=== PATIENT | female | born 1990 | race Caucasian/White ===

== ENCOUNTER → 2019-10-14 14:02 | Outpatient (BNVA) | payer SELFPAY | PROVIDERS: Visit Provider Nurse Practitioner Women's Health | DX: Z34.90 Encounter for supervision of normal pregnancy, unspecified, unspecified trimester (principal) | CPT/HCPCS: 81000 ==

== ENCOUNTER → 2019-11-03 14:04 | Outpatient (BNVA) | payer MEDICAID, SELFPAY | PROVIDERS: Visit Provider Obstetrics & Gynecology | DX: O21.9 Vomiting of pregnancy, unspecified (principal) | CPT/HCPCS: 80053; 80307; 81000; 85027; 86592; 86762; 86803; 86850; 86900; 87340; 87806 ==

== ENCOUNTER → 2019-11-14 13:44 | Outpatient (BNVA) | payer MEDICAID, SELFPAY | PROVIDERS: Visit Provider Nurse Practitioner Women's Health | DX: Z34.81 Encounter for supervision of other normal pregnancy, first trimester (principal) | CPT/HCPCS: 81000; 87491; 87591; 87661; 88175 ==

== ENCOUNTER → 2019-12-09 16:54 | Outpatient (BNVA) | payer MEDICAID, SELFPAY | PROVIDERS: Visit Provider Nurse Practitioner Women's Health | DX: Z34.90 Encounter for supervision of normal pregnancy, unspecified, unspecified trimester (principal) | CPT/HCPCS: 81000 ==

== ENCOUNTER → 2020-01-08 10:51 | Outpatient (BNVA) | payer MEDICAID, SELFPAY | PROVIDERS: Visit Provider Obstetrics & Gynecology | DX: Z34.90 Encounter for supervision of normal pregnancy, unspecified, unspecified trimester (principal) | CPT/HCPCS: 76805 ==

== ENCOUNTER → 2020-01-12 10:26 | Outpatient (BNVA) | payer MEDICAID, SELFPAY | PROVIDERS: Visit Provider Obstetrics & Gynecology | DX: Z34.90 Encounter for supervision of normal pregnancy, unspecified, unspecified trimester (principal) | CPT/HCPCS: 81000 ==

== ENCOUNTER → 2020-02-05 10:58 | Outpatient (BNVA) | payer MEDICAID, SELFPAY | PROVIDERS: Visit Provider Obstetrics & Gynecology | DX: Z34.90 Encounter for supervision of normal pregnancy, unspecified, unspecified trimester (principal) | CPT/HCPCS: 81000 ==

== ENCOUNTER → 2020-03-04 14:04 | Outpatient (BNVA) | payer MEDICAID, SELFPAY | PROVIDERS: Visit Provider Obstetrics & Gynecology | DX: Z34.82 Encounter for supervision of other normal pregnancy, second trimester (principal) | CPT/HCPCS: 81000; 82950; 85027 ==

== ENCOUNTER → 2020-03-08 00:01 | Outpatient (BNVA) | payer MEDICAID, SELFPAY | PROVIDERS: Visit Provider Obstetrics & Gynecology | DX: Z34.82 Encounter for supervision of other normal pregnancy, second trimester (principal) | CPT/HCPCS: 82950 ==

== ENCOUNTER → 2020-03-15 12:40 | Outpatient (BNVA) | payer MEDICAID, SELFPAY | PROVIDERS: Visit Provider Obstetrics & Gynecology | DX: Z34.82 Encounter for supervision of other normal pregnancy, second trimester (principal) | CPT/HCPCS: 81000 ==

== ENCOUNTER → 2020-04-01 13:08 | Outpatient (BNVA) | payer MEDICAID, SELFPAY | PROVIDERS: Visit Provider Obstetrics & Gynecology | DX: Z34.90 Encounter for supervision of normal pregnancy, unspecified, unspecified trimester (principal) | CPT/HCPCS: 81000 ==

== ENCOUNTER → 2020-04-15 11:36 | Outpatient (BNVA) | payer MEDICAID, SELFPAY | PROVIDERS: Visit Provider Nurse Practitioner Women's Health | DX: Z34.83 Encounter for supervision of other normal pregnancy, third trimester (principal) | CPT/HCPCS: 81000 ==

== ENCOUNTER → 2020-04-29 11:10 | Outpatient (BNVA) | payer MEDICAID, SELFPAY | PROVIDERS: Visit Provider Obstetrics & Gynecology | DX: Z34.83 Encounter for supervision of other normal pregnancy, third trimester (principal) | CPT/HCPCS: 81000; 87081 ==

== ENCOUNTER → 2020-05-06 11:08 | Outpatient (BNVA) | payer MEDICAID, SELFPAY | PROVIDERS: Visit Provider Obstetrics & Gynecology | DX: Z34.83 Encounter for supervision of other normal pregnancy, third trimester (principal) | CPT/HCPCS: 81000 ==

== ENCOUNTER → 2020-05-14 11:43 | Outpatient (BNVA) | payer MEDICAID, SELFPAY | PROVIDERS: Visit Provider Obstetrics & Gynecology | DX: O99.820 Streptococcus B carrier state complicating pregnancy (principal) | CPT/HCPCS: 81000 ==

== ENCOUNTER → 2020-05-20 12:53 | Outpatient (BNVA) | payer MEDICAID, SELFPAY | PROVIDERS: Visit Provider Obstetrics & Gynecology | DX: Z34.90 Encounter for supervision of normal pregnancy, unspecified, unspecified trimester (principal); Z20.822 Contact with and (suspected) exposure to COVID-19 | CPT/HCPCS: 81000; 87635 ==

== ENCOUNTER 2020-05-25 23:09 | Inpatient (IN) | payer MEDICAID, SELFPAY ==
[2020-05-25 22:05] VITALS: TEMP 36.4
[2020-05-25 22:11] VITALS: BP 141/97; PULSE 122
[2020-05-25] MEDS: dextrose 5%-lactated ringers 1,000 ML 125 ML IV (23:24)
[2020-05-25] MEDS: ampicillin 2,000 MG in sodium chloride 0.9% (plus) 50 ML 100 MG IV (23:24)
[2020-05-25 23:26] LABS: Basophils # 0.1 10^3/uL (0.0-0.1); Basophils % 0.6 %; Eosinophils # 0.2 10^3/uL (0.0-0.8); Hematocrit 37.1 % (37.0-47.0); Hemoglobin 11.5 g/dL (11.5-15.3); Lymphocytes # 2.1 10^3/uL (0.8-4.8); Lymphocytes % 19.4 %; Mean Corpuscular Hemoglobin 25.3 pg (28.0-34.0); Mean Corpuscular Volume 81.7 fL (81-99); Monocytes # 1.1 10^3/uL (0.2-0.9); Monocytes % 10.6 %; Neutrophils % 66.9 %; Nucleated Red Blood Cells % 0 %; Platelet Count 381 10^3/cmm (130-400); Red Blood Count 4.54 10^6/uL (4.1-5.3); White Blood Count 10.7 10^3/uL (4.0-10.0)
[2020-05-26] VITALS (19 sets, daily range): BP systolic 102–147; BP diastolic 62–91; PULSE 65–139; RESP 17–20; TEMP 36.4–36.9
[2020-05-26] MEDS: ampicillin 1,000 MG in sodium chloride 0.9% (plus) 50 ML 100 MG IV ×2 (03:26→07:00)
[2020-05-26] MEDS: fentaNYL 50 mcg/mL INJ 2mL 25 MCG IVP (07:44)
--- NOTE | 2020-05-26 08:14 | PC.NURSE ---
right lateral with left leg in stir up
[2020-05-26] MEDS: oxytocin 30 UNIT/500 ML BAG 600 UNIT IV (10:24)
--- NOTE | 2020-05-26 10:32 | P.PCNOB_ITS ---
Delivery Note: Date of delivery: May 26, 2020 Pre-delivery diagnoses: 1. Term at 40-1/7 weeks gestation 2. Group B strep positive carrier status affecting in third trimester Post-delivery diagnoses: 1. Term delivered 2. Group B strep positive carrier status - delivered 3. Viable female infant Procedure: Spontaneous vaginal delivery Op report anesthesia: None Delivering Physician: Genaro Todd MD Estimated blood loss (mL): 200 Pre-Delivery Course: Patient is a 29-year-old female 5, para 4-0-0-4 with an LMP of 08/19/2019 and an EDC of 05/25/2020 based on LMP and consistent with a 13-week ultrasound, which placed her at 40-0/7 weeks gestation at the time of admission. She presented to labor and delivery on 05/25/2020 at approximately 21:50 with complaint of contractions. She was cynthia regularly at that time. She was 70% effaced and 3 cm dilated. She continued to contract regularly and by approximately 23:00 she was 4 cm dilated. She was admitted to the hospital. She was started on ampicillin for group B strep prophylaxis due to positive carrier status. She continued to progress on her own through the rest of the night. At 08:53, artificial rupture membranes was performed with clear fluid present. She was 8 cm dilated at the time. She progressed to complete dilation by 10:12. heart rate tracing was reassuring during the labor course. Delivery: Patient started pushing at 10:15 and delivered at 10:19 as a spontaneous vaginal delivery of an occiput anterior female infant over an intact perineum under no anesthesia. Following delivery of the 's head, 3 loops of nuchal cord were noted and reduced. Rest of the infant delivered atraumatically with the left shoulder anterior. Infant was placed on the mother's abdomen where it was left in the care of the waiting nurses. At approximately 2 minutes of life, cord was clamped and then cut. Baby was spontaneously crying. Pitocin bolus was started. Placenta delivered intact by simple expression at 10:23. Cervix and vagina were palpated and noted to be intact. The labia were inspected and noted to be intact except for scattered superficial abrasions which required no repair. FINDINGS 1. Viable female infant with a weight of 6 lbs 7 oz (3039 g) and length of 20 inches with Apgars of 8 at 1 minute and 9 at 5 minutes. 2. Three-vessel cord with 3 loops of nuchal cord noted. 3. Normal-appearing placenta with an eccentric cord insertion. Post-Delivery Status: Mother and infant were left to recover in satisfactory condition. A&P Assessment and plan (1) Term delivered: Status: Acute (2) Group B Streptococcus carrier, delivered, current hospitalization: Status: Acute Coding Level of Care Code Acute Security System Sales Consultant for Chg Fwd Diagnoses Term delivered O80 Group B Streptococcus carrier, delivered, current hospitalization O99.824
[2020-05-26] MEDS: ibuprofen 800 mg tablet PO ×2 (16:29→20:44)
[2020-05-26] MEDS: benzocaine-menthol 78 gm Canister 1 SPRAY TOPICAL (16:29)
[2020-05-26] MEDS: lanolin oint 7 gm 1 APPLIC TOPICAL (16:29)
[2020-05-26] MEDS: docusate sodium 100 mg Capsule PO (20:44)
[2020-05-26 23:29] LABS: Hematocrit 30.7 % (37.0-47.0); Hemoglobin 9.4 g/dL (11.5-15.3); Mean Corpuscular HGB Conc 30.6 g/dL (30.0-36.0); Mean Corpuscular Hemoglobin 25.1 pg (28.0-34.0); Mean Corpuscular Volume 81.9 fL (81-99); Mean Platelet Volume 9.9 fL (7.4-10.4); Platelet Count 319 10^3/cmm (130-400); Red Blood Count 3.75 10^6/uL (4.1-5.3); Red Cell Distribution Width 15.1 % (12.1-15.1); White Blood Count 10.4 10^3/uL (4.0-10.0)
[2020-05-27 00:17] VITALS: BP 104/58; PULSE 74
[2020-05-27 04:05] VITALS: BP 94/56; PULSE 73
--- NOTE | 2020-05-27 07:59 | PM.OBGYDC ---
Discharge Providers NARCOTICS DETECTIVE Date of Admission: 05/25/20 23:09 Date of Discharge: 05/27/20 Attending Provider at Admission: Genaro Todd MD Attending Provider at Discharge: Genaro Todd MD Diagnoses at Discharge Discharge Diagnosis (1) Term delivered: Status: Acute (2) Group B Streptococcus carrier, delivered, current hospitalization: Status: Acute Reason for Visit Reason for Visit: contractions Hospital Course Hospital Course Patient is a 29-year-old female 5, now para 5-0-0-5 with an LMP of 08/19/2019 and an EDC of 05/25/2020 based on LMP and consistent with a 13-week ultrasound. She was 40-0/7 weeks gestation at the time of admission. She presented to L&D on 05/25/2020 at approximately 21:50 with contractions. She was started on ampicillin for positive group B strep status. She progressed on her own through the night and by 10:12 on 05/26/2020, was found to be completely dilated. She started pushing at 10:15 and delivered at 10:19 as a spontaneous vaginal delivery of an occiput anterior female infant over an intact perineum under no anesthesia. The baby weighed 6 pounds 7 ounces (3039 g) with a length of 20 inches and Apgars of 8 at 1 minute 9 at 5 minutes. Mother and both did well following delivery. Day 1 She was without complaints. She reported tolerating regular diet without nausea or vomiting. She was ambulating without lightheadedness or dizziness. She stated her pain was well controlled. She denied shortness of breath or chest pains. She denied problems with urination. She stating her bleeding has slowed. She is wanting to go home today. Physical exam: See below Plan Discharge to home. Discharge instructions discussed with patient. She is to follow-up in the office in approximately 6 weeks for visit. Information Peripartum Data: Infant Delivery Method: Vaginal Physical Exam Const: COMMON NORMALS: no acute distress, average body habitus, alert and well nourished GENERAL APPEARANCE: well developed ORIENTATION/CONSCIOUSNESS: Yes oriented to person, Yes oriented to place and Yes oriented to time Resp: COMMON NORMALS: normal respiratory effort and clear to auscultation bilaterally AUSCULTATION: clear to auscultation bilaterally Cardio: COMMON NORMALS: regular rate, regular rhythm, No gallops present (Cardio) and No rub (Cardio) RATE: regular rate RHYTHM: regular rhythm GI: COMMON NORMALS: Soft to palpation, non-tender, No hepatosplenomegaly present and no masses (Except for nontender uterus) AUSCULTATION: Yes normoactive bowel sounds PALPATION: Yes Soft to palpation, Yes No hepatosplenomegaly present and No Hernia present : EXTERNAL FEMALE EXAM: No Hernia present Extremity: COMMON NORMALS: no calf tenderness NARRATIVE EXTREMITY EXAM: Trace lower extremity edema bilaterally Neuro: SENSORIUM/ORIENTATION: Yes alert, Yes oriented to person, Yes oriented to place and Yes oriented to time Psych: COMMON NORMALS: normal affect MOOD & AFFECT: Yes euthymic mood Discharge Data Data Completed and Pending: Labs from last 24 hours 05/26/20 23:20 WBC 10.4 H RBC 3.75 L Hgb 9.4 L Hct 30.7 L MCV 81.9 MCH 25.1 L MCHC 30.6 RDW 15.1 Plt Count 319 MPV 9.9 Vitals: Last Vital Signs Temp 97.6 F 05/26/20 20:07 Pulse 73 05/27/20 04:05 Resp 18 05/26/20 11:00 BP 94/56 05/27/20 04:05 Discharge Plan Discharge Patient Disposition: Home Condition: Stable Prescriptions: Continued Gummies 400 mcg-35 mg- 25 mg-5 mg tablet,chewable 2 tab PO DAILY RF: 0 Discharge Orders: Discharge Order (Routine); Ordered 05/27/20 Ordered By: Genaro Todd Referrals: Genaro Todd MD [Physician] - 6 Weeks ( exam) Discharge Diet: Regular Discharge Activity: Resume usual activity Patient Instructions: Pre-eclampsia and Eclampsia (DC), Bleeding (DC), OB Discharge Report, OB Food/Drug Interaction Guide, OB Home Care, OB Proud Parent Packet, OB Vaginal Deliveries - [facility] Activity Restrictions/Additional Instructions: May use [id number] ibuprofen and Tylenol as needed for pain Discharge Attestations NARCOTICS DETECTIVE Time Spent in Discharge Care*: less than 30 min Coding Level of Care Code Acute Software Developer Mid Level for Chg Fwd Diagnoses Term delivered O80 Group B Streptococcus carrier, delivered, current hospitalization O99.824
[2020-05-27] MEDS: ibuprofen 800 mg tablet PO (08:54)
[2020-05-27] MEDS: docusate sodium 100 mg Capsule PO (08:54)
[2020-05-27] MEDS: prenatal vitamin Capsule 1 CAP PO (08:54)
[2020-05-27 12:29] VITALS: BP 121/87; PULSE 92; RESP 16; TEMP 37
== END 2020-05-27 13:25 | disposition home or self-care (01) | DRG 807 ==
LOC: OPOB 05-26 03:46 → OBGYN 05-26 03:46
PROVIDERS: Admitting Provider Obstetrics & Gynecology; Visit Provider Obstetrics & Gynecology
DX: O99.824 Streptococcus B carrier state complicating childbirth (principal); Z37.0 Single live birth; O48.0 Post-term pregnancy; Z3A.40 40 weeks gestation of pregnancy; O69.81X0 Labor and delivery complicated by cord around neck, without compression, not applicable or unspecified
CPT/HCPCS: 36415; 59025; 59409; 85025; 85027; 99211; J0290; J3010

== ENCOUNTER 2023-12-12 18:48 | Emergency (ER) | payer MEDICAID, SELFPAY ==
[2023-12-12] VITALS (7 sets, daily range): BP systolic 79–132; BP diastolic 45–91; PULSE 38–142; RESP 11–19; O2SAT 95–100; BMI 20.9
--- NOTE | 2023-12-12 19:17 | ECG_ITS ---
[facility] Test Date: 2023-12-12 Pat Name: Jamee Santos Department: Room: Gender: Female Shade Bander: : 1990 Requested By: Jag Jaime Order Number: [id number] Mallory MD: Carolyne Alicea M.D. Measurements Intervals [place] Rate: 34 P: 0 MI: 0 QRS: 82 QRSD: 85 T: 72 QT: 467 QTc: 354 Interpretive Statements SUPRAVENTRICULAR BRADYCARDIA, possibly junctional rhythm No previous ECG available for comparison Electronically Signed On 12-13-2023 0:23:29 CDT by Carolyne Alicea M.D. [email or web address].[employer]/store/OM/[id number]
--- NOTE | 2023-12-12 19:18 | ED_ITS ---
HPI - Nausea/Vomiting/Diarrhea 2 General: Chief complaint: Nausea/Vomiting/Diarrhea Stated complaint: sudden vomit green abd pain Time Seen by Provider: 12/12/23 19:11 Source: patient Mode of arrival: ambulatory Limitations: no limitations History of Present Illness: 33-year-old female states that she drank a dandelion tea roughly an hour ago she states that her after drinking that she has had multiple episodes of vomiting over the last hour. She states she feels extremely nauseous and is felt weak and lightheaded. Patient is bradycardic and hypotensive here she denies any abdominal pain denies any fever denies any chest pain no history of any medical issues Associated nausea: Yes Associated symtoms: Reports nausea; Denies chest pain, dysuria or headache(s) Related Data Home Medications Medication Instructions Recorded Confirmed PNV 153-FA 400 mcg-om3 35 mg-dha 2 tab PO DAILY 10/14/19 07/05/20 25 mg-epa 5 mg-fish oil chew tablet ( Gummies) Previous Rx's Medication Instructions Recorded ondansetron 4 mg disintegrating 4 mg PO Q6H PRN nausea and 12/12/23 tablet vomiting #14 tabs Allergies Allergy/AdvReac Type Severity Reaction Status Date / Time No Known Allergies Allergy Verified 07/05/20 10:35 Review of Systems 2 Const: Denies: fever(s), chills, body aches or change in appetite Eyes: Denies: blurry vision or eye discomfort ENMT: Denies: throat pain or dental pain Card: Denies: chest pain Resp: Denies: dyspnea GI: Reports: nausea and vomiting; Denies: abdominal pain or diarrhea : Denies: dysuria Musc: Denies: neck pain or back pain Skin/Breast: Denies: rash Neuro: Denies: headache(s) PFSH ED 2 PFSH: Medical History (Updated 12/12/23 @ 20:44 by Jag Jaime MD) No pertinent past medical history neghx: htn,dm,thyroid,dvt/pe Surgical History No pertinent past surgical history Family History Denies family history of Ovarian cancer Dementia Hyperlipidemia Breast cancer Cancer Hypertension Uterine cancer Stroke Social History Smoking and tobacco/nicotine status: never used tobacco/nicotine Alcohol intake: never Substance/Drug Use: never Physical Exam 2 Const: COMMON NORMALS: patient oriented x3 GENERAL APPEARANCE: ill appearing HENMT: COMMON NORMALS: normocephalic and atraumatic HEAD & SCALP: n ormocephalic and atraumatic Eye: COMMON NORMALS: conjunctivae normal CONJUNCTIVA: Yes conjunctivae normal Neck/C-Spine: COMMON NORMALS: full ROM and supple Chest: COMMONS NORMALS: normal inspection of the chest Resp: COMMON NORMALS: normal respiratory effort, No retractions, No use of accessory muscles and clear to auscultation bilaterally AUSCULTATION: clear to auscultation bilaterally Cardio: COMMON NORMALS: regular rhythm and No murmurs present (Cardio) R ATE: bradycardic RHYTHM: regular rhythm GI: COMMON NORMALS: Normal to inspection, nondistended, normoactive bowel sounds present, Soft to palpation, non-tender and no masses PALPATION: Yes Soft to palpation Extremity: COMMON NORMALS: normal to inspection and full ROM Neuro: COMMON NORMALS: patient oriented x3, moves all extremities and no focal motor deficits Psych: COMMON NORMALS: mental status grossly normal, Normal thought process present and cooperative THOUGHT PROCESS: Normal thought process present Skin: COMMON NORMALS: no rashes or lesions noted and no wounds GENERAL SKIN EXAM: no rashes or lesions noted Course 2 Vital Signs: Vital signs: Vital Signs Pulse Rate 78 12/12/23 21:00 Respiratory Rate 11 L 12/12/23 21:00 Blood Pressure 117/81 12/12/23 21:00 Pulse Oximetry 100 12/12/23 21:00 Oxygen Delivery Me thod Room Air 12/12/23 19:10 MDM - Nausea/Vomiting/Diarrhea Medical Decision Making Patient presents here with vomiting feels much improved after fluids and Zofran she was bradycardic when she first arrived she had likely a vagal causing her bradycardia did give her 1 dose of atropine heart rates now in the 80s I did offer her admission due to her bradycardia but she states she feels much improved and wants to go home she is tolerated p.o. here blood works normal she is to follow-up with PCP return if worsening Medical Records I reviewed the patient's medical records. Lab Data I reviewed the patient's lab results. 12/12/23 19:18 12/12/23 19:18 Laboratory Results WBC 9.94 10^3/uL (3.29-11.43) 12/12/23 19:18 RBC 4.91 10^6/uL (3.85-5.65) 12/12/23 19:18 Hgb 13.30 g/dL (11.27-16.99) 12/12/23 19:18 Hct 42.1 % (36-47) 12/12/23 19:18 MCV 85.7 fl (85-98) 12/12/23 19:18 MCH 27.1 pg (27-33) 12/12/23 19:18 MCHC 31.6 g/dL (30-55) 12/12/23 19:18 RDW 13.2 % (12.1-15.1) 12/12/23 19:18 Plt Count 318 10^3/cmm (157-399) 12/12/23 19:18 MPV 10.4 fL (7.4-10.4) 12/12/23 19:18 Neut % (Auto) 77.6 % 12/12/23 19:18 Lymph % (Auto) 12.5 % 12/12/23 19:18 [place] % (Auto) 7.2 % 12/12/23 19:18 Eos % (Auto) 1.5 % 12/12/23 19:18 Baso % (Auto) 0.8 % 12/12/23 19:18 Neut # (Auto) 7.71 10^3/uL (1.8-7.7) H 12/12/23 19:18 Lymph # (Auto) 1.2 10^3/uL (0.8-4.8) 12/12/23 19:18 [place] # (Auto) 0.7 10^3/uL (0.2-0.9) 12/12/23 19:18 Eos # (Auto) 0.2 10^3/uL (0.0-0.8) 12/12/23 19:18 Baso # (Auto) 0.1 10^3/uL (0.0-0.1) 12/12/23 19:18 Nucleated RBC % (auto) 0 % 12/12/23 19:18 Nucleated RBCs # 0.0 /100WBC 12/12/23 19:18 Sodium 140 mmol/L (136-145) 12/12/23 19:18 Potassium 4.1 mmol/L (3.5-5.1) 12/12/23 19:18 Chloride 102 mmol/L (98-107) 12/12/23 19:18 Carbon Dioxide 22 mmol/L (22-29) 12/12/23 19:18 Anion Gap 20.1 (5-19) H 12/12/23 19:18 BUN 18 mg/dL (6-20) 12/12/23 19:18 Creatinine 0.8 mg/dL (0.5-0.9) 12/12/23 19:18 GFR Calculation 81.6 mL/min (90-130) L 12/12/23 19:18 Glucose 115 mg/dL (65-115) 12/12/23 19:18 Calculated Osmolality 293 mOsm/kg (285-295) 12/12/23 19:18 Calcium 10.3 mg/dL (8.5-10.5) 12/12/23 19:18 Magnesium 2.1 mg/dL (1.7-2.3) 12/12/23 19:18 Total Bilirubin 0.6 mg/dL (0.15-1.2) 12/12/23 19:18 AST 15 U/L (0-32) 12/12/23 19:18 ALT 12 U/L (0-33) 12/12/23 19:18 Alkaline Phosphatase 48 U/L (35-105) 12/12/23 19:18 Troponin T Baseline < 6 ng/L (0-10) 12/12/23 19:18 Total Protein 7.7 g/dL (6.6-8.7) 12/12/23 19:18 Albumin 4.8 g/dL (3.5-5.2) 12/12/23 19:18 Globulin 2.9 g/dL (1.3-4.6) 12/12/23 19:18 Lipase 59 U/L (13-60) 12/12/23 19:18 HCG, Qual Negative (Negative) 12/12/23 19:18 All radiology interpretation(s) finalized by discharge EKG Data EKG 1: I personally reviewed and interpreted this EKG as follows: EKG interpretation date: 12/12/23 EKG interpretation time: 19:18 Interpretation: bradycardia hr [address] elevation qrs 85 qtc 363 EKG 2: I personally reviewed and interpreted this EKG as follows: EKG interpretation date: 12/12/23 EKG interpretation time: 20:31 Interpretation: nsr hr [address] or t wave abnormalities qrs 86 qtc 396 Discharge Plan Discharge Patient Disposition: Home Clinical Impression: Vomiting, Bradycardia Condition: Stable Prescriptions: New ondansetron 4 mg tablet,disintegrating 4 mg PO Q6H PRN (Reason: nausea and vomiting) Qty: 14 0RF No Action Gummies 400 mcg-35 mg- 25 mg-5 mg tablet,chewable 2 tab PO DAILY Discharge Orders: Discharge ED (Routine); Ordered 12/12/23 Ordered By: Jag Jaime Discharge Diet: Advance as tolerated Discharge Activity: Resume usual activity Patient Instructions: Acute Nausea and Vomiting (ED) Coding Level of Care Code ED Tire Rebuilder for Darrick Mares
[2023-12-12 19:25] LABS: Basophils # 0.1 10^3/uL (0.0-0.1); Basophils % 0.8 %; Eosinophils # 0.2 10^3/uL (0.0-0.8); Eosinophils % 1.5 %; Hematocrit 42.1 % (36-47); Lymphocytes # 1.2 10^3/uL (0.8-4.8); Lymphocytes % 12.5 %; Mean Corpuscular HGB Conc 31.6 g/dL (30-55); Mean Corpuscular Hemoglobin 27.1 pg (27-33); Mean Corpuscular Volume 85.7 fl (85-98); Mean Platelet Volume 10.4 fL (7.4-10.4); Monocytes # 0.7 10^3/uL (0.2-0.9); Monocytes % 7.2 %; Neutrophils # 7.71 10^3/uL (1.8-7.7); Neutrophils % 77.6 %; Nucleated Red Blood Cells % 0 %; Platelet Count 318 10^3/cmm (157-399); Red Blood Count 4.91 10^6/uL (3.85-5.65); Red Cell Distribution Width 13.2 % (12.1-15.1); White Blood Count 9.94 10^3/uL (3.29-11.43)
[2023-12-12] MEDS: atropine 0.1 mg/mL Syr 10 mL 0.5 MG IVP (19:32)
[2023-12-12] MEDS: ondansetron 2 mg/ML SDV 2 mL 4 MG IVP (19:32)
--- NOTE | 2023-12-12 19:37 | ECG_ITS ---
[facility] Test Date: 2023-12-12 Pat Name: Jamee Santos Department: Room: Gender: Female Swing Type Lathe Operator: : 1990 Requested By: Jag Jaime Order Number: [id number] Mallory MD: Carolyne Alicea M.D. Measurements Intervals [place] Rate: 141 P: 36 ID: 156 QRS: 74 QRSD: 81 T: 90 QT: 224 QTc: 344 Interpretive Statements SINUS TACHYCARDIA, POSSIBLE ATRIAL FLUTTER NONSPECIFIC ST & T-WAVE ABNORMALITY ABNORMAL RHYTHM ECG Compared to ECG 12/12/2023 19:18:02 T-wave abnormality now present Electronically Signed On 12-13-2023 0:23:36 CDT by Carolyne Alicea M.D. [email or web address] memorial [email or web address] Steps/store/NU/[id number] f
[2023-12-12 19:43] LABS: HCG, Serum Qual Negative (Negative)
[2023-12-12 19:51] LABS: Alanine Aminotransferase 12 U/L (0-33); Albumin Level 4.8 g/dL (3.5-5.2); Alkaline Phosphatase 48 U/L (35-105); Anion Gap 20.1 (5-19); Aspartate Amino Transferase 15 U/L (0-32); Blood Urea Nitrogen 18 mg/dL (6-20); Calcium 10.3 mg/dL (8.5-10.5); Carbon Dioxide 22 mmol/L (22-29); Chloride 102 mmol/L (98-107); Creatinine Clr Calc Pharmacy 88.4151; Globulin 2.9 g/dL (1.3-4.6); Glomerular Filtration Rate 81.6 mL/min (90-130); Glucose 115 mg/dL (65-115); Lipase 59 U/L (13-60); Magnesium 2.1 mg/dL (1.7-2.3); Osmolality Calculated 293 mOsm/kg (285-295); Potassium 4.1 mmol/L (3.5-5.1); Sodium 140 mmol/L (136-145); Total Bilirubin 0.6 mg/dL (0.15-1.2); Total Protein 7.7 g/dL (6.6-8.7)
[2023-12-12 19:55] LABS: Troponin(5th) Baseline < 6 ng/L (0-10)
[2023-12-12] MEDS: sodium chloride 0.9% 1,000 ML 999 ML IV ×2 (19:58→20:42)
--- NOTE | 2023-12-12 20:03 | ECG_ITS ---
[facility] Test Date: 2023-12-12 Pat Name: Jamee Santos Department: Room: Gender: Female Professional Services Specialist: : 1990 Requested By: Jag Jaime Order Number: [id number] Mallory MD: Carolyne Alicea M.D. Measurements Intervals [place] Rate: 107 P: 77 SC: 208 QRS: 75 QRSD: 78 T: 75 QT: 318 QTc: 426 Interpretive Statements SINUS TACHYCARDIA MINIMAL ST DEPRESSION [0.025+ mV ST DEPRESSION] ABNORMAL RHYTHM ECG Compared to ECG 12/12/2023 19:37:51 ST (T wave) deviation now present T-wave abnormality no longer present Electronically Signed On 12-13-2023 0:23:51 CDT by Carolyne Alicea M.D. [email or web address] Groupsouth sunflower county hospitalThe Lionsmercy health [facility].[employer]/store/OM/[id number]
--- NOTE | 2023-12-12 21:24 | ECG_ITS ---
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 Measurements Intervals [place] Rate: 94 P: 61 [place]: 208 QRS: 70 QRSD: 86 T: 66 QT: 344 QTc: 431 Interpretive Statements SINUS RHYTHM POSSIBLE LEFT ATRIAL ENLARGEMENT [-0.1mV P-WAVE IN V1/V2] MINIMAL ST DEPRESSION [0.025+ mV ST DEPRESSION] Compared to ECG 12/12/2023 20:14:47 Sinus tachycardia no longer present ST (T wave) deviation still present Electronically Signed On 12-13-2023 22:31:28 CDT by Carolyne Alicea M.D. [email or web address].CSR/store/[id number]
== END 2023-12-12 21:29 | disposition home or self-care (01) ==
PROVIDERS: Emergency Provider Emergency Medicine
DX: R11.11 Vomiting without nausea (principal); R00.1 Bradycardia, unspecified
CPT/HCPCS: 80053; 83690; 83735; 84484; 84703; 85025; 93005; 96361; 96374; 96375; 99285; J0461; J2405; J7030